=== PATIENT | female | born 2000 | race Caucasian/White ===

== ENCOUNTER 2023-03-25 17:20 | Emergency (ER) | payer OTHER ==
[~2023-03-25] VITALS: Ht 162.6 cm; Wt 61.5 kg
[2023-03-25] MEDS ORDERED: EFFE75CA2 PO (19:26)
[2023-03-25] MEDS ORDERED: EFFE150C2 PO (19:26)
[2023-03-25] MEDS ORDERED: ABIL10TA9 PO (19:26)
[2023-03-25] MEDS ORDERED: TUMS500C PO (19:26)
[2023-03-25] MEDS ORDERED: NS 1,000 ML IV ONE (21:20)
[2023-03-25] MEDS ORDERED: ONDANSETRON 4MG 2ML VIAL IV ONE (21:20)
[2023-03-25] MEDS ORDERED: KETOROLAC 30 MG/ML 1ML VIAL IV ONE (21:20)
[2023-03-25] MEDS ORDERED: PANTOPRAZOLE 40MG VIAL IV ONE (21:20)
[2023-03-25 21:58] LABS: BASO % 0.2 % (0.0-1.0); EOS % 0.3 % (0.0-3.0); HEMATOCRIT 40.7 % (36.0-47.0); HEMOGLOBIN 14.4 g/dl (12.0-15.5); LYMPH # 1.7 10^3/uL (1.5-5.0); LYMPH % 16.5 % (24.0-44.0); MEAN CORPUSCULAR HEMOGLOBIN 30.2 pg (27.0-33.0); MEAN CORPUSCULAR HGB CONC 35.4 g/dl (32.0-36.5); MEAN CORPUSCULAR VOLUME 85.3 fl (80.0-96.0); MONO # 0.4 10^3/uL (0.0-0.8); NEUTROPHILS # 8.1 10^3/uL (1.5-8.5); NEUTROPHILS % 78.7 % (36.0-66.0); PLATELET COUNT, AUTOMATED 233 10^3/uL (150-450); RED BLOOD COUNT 4.77 10^6/uL (4.00-5.40); WHITE BLOOD COUNT 10.2 10^3/uL (4.0-10.0)
[2023-03-25 22:23] LABS: ALBUMIN 4.4 G/DL (3.2-5.2); BILIRUBIN,DIRECT 0.3 MG/DL (<0.4); BILIRUBIN,TOTAL 0.9 MG/DL (0.3-1.2); TOTAL PROTEIN 7.3 G/DL (5.7-8.2)
[2023-03-25] MEDS ORDERED: ISOVUE-370 76% 100ML VIAL As Ordered ONE (23:02)
[2023-03-26] MEDS ORDERED: CLAR500T97 PO (00:06)
[2023-03-26] MEDS ORDERED: CARA1TAB6 PO (00:06)
[2023-03-26] MEDS ORDERED: PANT40TA29 PO (00:06)
[2023-03-26 00:19] VITALS: BP 138/94; TEMP 98.7; O2SAT 100
== END 2023-03-26 00:21 | disposition home or self-care (01) ==
LOC: M ED 17:20
DX: K29.70 Gastritis, unspecified, without bleeding (principal); K21.9 Gastro-esophageal reflux disease without esophagitis; J30.2 Other seasonal allergic rhinitis; F41.9 Anxiety disorder, unspecified; F17.290 Nicotine dependence, other tobacco product, uncomplicated; Z79.899 Other long term (current) drug therapy
CPT/HCPCS: 74177; 80047; 80076; 81001; 83690; 84702; 85025; 96361; 96374; 96375; 99284; C9113; J1885; J2405; Q9967

== ENCOUNTER 2024-01-09 13:11 | Emergency (ER) | payer OTHER ==
[~2024-01-09] VITALS: Ht 162.6 cm; Wt 61.1 kg
[~2024-01-09 13:11] MED LIST: ABIL10TA9 PO; CARA1TAB6 PO; CLAR500T97 PO; EFFE150C3 PO; EFFE75CA2 PO; PANT40TA29 PO; TUMS500C PO
[2024-01-09] MEDS ORDERED: QUET50TA4 (13:41)
[2024-01-09] MEDS: NS 1,000 ML IV ONE (18:06)
[2024-01-09] MEDS: KETOROLAC 30 MG/ML 1ML VIAL IV ONE (18:06)
[2024-01-09] MEDS: ONDANSETRON 4MG 2ML VIAL IV ONE (18:06)
[2024-01-09] MEDS: diphenhydrAMINE 50MG/ML VIAL IV STA (18:06)
[2024-01-09 18:14] LABS: BASO % 0.1 % (0.0-1.0); EOS % 0.1 % (0.0-3.0); HEMATOCRIT 43.1 % (36.0-47.0); LYMPH # 1.2 10^3/uL (1.5-5.0); LYMPH % 17.3 % (24.0-44.0); MEAN CORPUSCULAR HEMOGLOBIN 29.9 pg (27.0-33.0); MEAN CORPUSCULAR HGB CONC 34.8 g/dl (32.0-36.5); MONO # 0.2 10^3/uL (0.0-0.8); MONO % 3.4 % (2.0-8.0); NEUTROPHILS # 5.6 10^3/uL (1.5-8.5); NEUTROPHILS % 78.8 % (36.0-66.0); PLATELET COUNT, AUTOMATED 238 10^3/uL (150-450); RED BLOOD COUNT 5.01 10^6/uL (4.00-5.40); WHITE BLOOD COUNT 7.2 10^3/uL (4.0-10.0)
[2024-01-09 18:49] LABS: ALBUMIN 4.7 G/DL (3.2-5.2); BILIRUBIN,DIRECT 0.3 MG/DL (<0.4); MAGNESIUM LEVEL 1.9 MG/DL (1.8-2.4); TOTAL PROTEIN 7.4 G/DL (5.7-8.2)
[2024-01-09 18:51] LABS: THYROID STIMULATING HORMONE 0.874 uIU/ML (0.55-4.78)
[2024-01-09 18:52] LABS: FREE T4 1.24 NG/DL (0.89-1.76)
[2024-01-09 20:55] VITALS: BP 117/73; TEMP 97.5; O2SAT 100
== END 2024-01-09 21:00 | disposition home or self-care (01) ==
LOC: M ED 13:11
DX: G43.909 Migraine, unspecified, not intractable, without status migrainosus (principal); K21.9 Gastro-esophageal reflux disease without esophagitis; F41.9 Anxiety disorder, unspecified; F32.A Depression, unspecified; Z88.1 Allergy status to other antibiotic agents; Z88.2 Allergy status to sulfonamides; Z88.8 Allergy status to other drugs, medicaments and biological substances
CPT/HCPCS: 70450; 80047; 80076; 83735; 84439; 84443; 84702; 85025; 96374; 96375; 99284; J1200; J1885; J2405